=== PATIENT | female | born 1955 ===

== ENCOUNTER 2018-06-18 09:15 | Outpatient (CLI) | payer MEDICAID | END 2018-06-18 09:16 | disposition home or self-care (01) | LOC: C.DEXAIC 09:15 | DX: Z13.820 Encounter for screening for osteoporosis (principal) ==

== ENCOUNTER 2018-07-16 10:41 | Outpatient (CLI) | payer MEDICAID | END 2018-07-16 10:42 | disposition home or self-care (01) | LOC: C.RADIC 10:41 ==